=== PATIENT | male | born 1965 | race Two or more races ===

== ENCOUNTER → 2017-10-29 | Outpatient (REF) | payer OTHER | LOC: M SFHCLERA 11:23 | PROVIDERS: ATTEND Nurse Practitioner Family | DX: J02.9 Acute pharyngitis, unspecified (principal) ==

== ENCOUNTER 2020-02-09 10:31 | Emergency (ER) | payer OTHER ==
[~2020-02-09] VITALS: Ht 180.3 cm; Wt 101.7 kg
[2020-02-09] MEDS ORDERED: CETI10CH PO (10:44)
[2020-02-09] MEDS ORDERED: PRED20TA (10:44)
[2020-02-09] MEDS ORDERED: ATOR40TA75 PO (10:44)
[2020-02-09] MEDS ORDERED: SULF1TAB93 PO (10:44)
[2020-02-09] MEDS ORDERED: FLON1SPR NARES (10:44)
[2020-02-09] MEDS ORDERED: OXYB15TA14 PO (10:44)
[2020-02-09] MEDS ORDERED: MELO15TA28 PO (10:44)
[2020-02-09 12:11] LABS: BASO # 0.1 10^3/uL (0.0-0.2); BASO % 1.1 % (0.0-1.0); EOS # 0.1 10^3/uL (0.0-0.5); HEMATOCRIT 42.5 % (42.0-52.0); HEMOGLOBIN 14.4 g/dl (13.5-17.5); LYMPH # 1.9 10^3/uL (1.5-5.0); LYMPH % 26.5 % (24.0-44.0); MEAN CORPUSCULAR HEMOGLOBIN 29.9 pg (27.0-33.0); MEAN CORPUSCULAR HGB CONC 33.9 g/dl (32.0-36.5); MEAN CORPUSCULAR VOLUME 88.4 fl (80.0-96.0); MONO # 0.5 10^3/uL (0.0-0.8); MONO % 7.1 % (0.0-5.0); NEUTROPHILS # 4.2 10^3/uL (1.5-8.5); NEUTROPHILS % 59.6 % (36.0-66.0); PLATELET COUNT, AUTOMATED 258 10^3/uL (150-450); RED BLOOD COUNT 4.81 10^6/uL (4.30-6.10); WHITE BLOOD COUNT 7.1 10^3/uL (4.0-10.0)
[2020-02-09 12:30] LABS: BLOOD UREA NITROGEN 18 MG/DL (7-18); CARBON DIOXIDE LEVEL 29 MEQ/L (21-32); CHLORIDE LEVEL 103 MEQ/L (98-107); CREATININE FOR GFR 1.02 MG/DL (0.70-1.30); ERYTHROCYTE SEDIMENTATION RATE 22 mm/hr (0-20); GLOMERULAR FILTRATION RATE > 60.0 (>56); GLUCOSE, FASTING 93 MG/DL (70-100); POTASSIUM SERUM 4.3 MEQ/L (3.5-5.1); SODIUM LEVEL 136 MEQ/L (136-145)
[2020-02-09 12:42] LABS: C REACTIVE PROTEIN QUANTITATIV 0.61 MG/DL (0.00-0.30)
--- NOTE | 2020-02-09 13:34 | REP ---
LEFT ELBOW, FOUR VIEWS: Four views of the elbow performed. No acute fracture or dislocation is seen. There is mild spurring of the proximal ulna. There is mild soft tissue swelling over the olecranon, possibly indicating bursitis at that location. Electronically Signed by Uriel Park MD 02/09/2020 02:27 P
--- NOTE | 2020-02-09 14:36 | CR.PDOC ---
General Date of Consultation: Feb 09, 2020 Referring Provider: FRANCISCO J VAUGHN MD Consultation REASON FOR CONSULTATION/CHIEF COMPLAINT: [Medical assessment for admission]. HISTORY OF PRESENT ILLNESS: [55 years old white female with past medical history of prostate cancer had fallen on his left elbow about 2 weeks ago sustained a laceration but he did not go on one week later he went to urgent care center where he received 1 g of Rocephin, steroids and Bactrim by mouth for one week for redness and swelling. Patient came in with the complaint of swelling at his left elbow and will await called in by the ED team to assess for possible admission.]. ALLERGIES: Please see below. HOME MEDICATIONS: Please see below. PAST MEDICAL HISTORY: , Prostate cancer, hyperlipidemia, erectile dysfunction PAST SURGICAL HISTORY: None. Prostatectomy artificial urethral sphincter FAMILY HISTORY: History of diabetes or cancer SOCIAL HISTORY: Lives with the family. No history of smoking, alcohol or drug abuse REVIEW OF SYSTEMS: Musculoskeletal: Swelling at left elbow All other 11 systems are essentially within normal limits PHYSICAL EXAMINATION: VITAL SIGNS: Please see below. GENERAL APPEARANCE: [Normal]. HEENT: [PERRLA, extra ocular muscles intact]. RESPIRATORY: [Clear to A&P]. CARDIOVASCULAR: [S1, S2, regular]. ABDOMEN: [, Soft, nontender. Bowel sounds present]. EXTREMITIES: [Smaller swelling fluctuation just above the left, all occurring in no evidence of redness, increased local temperature, alcohol or change]. NEUROLOGICAL: [. No focal motor sensory deficit]. PSYCHIATRIC: [Normal]. LABORATORY DATA: X-ray left elbow: Bursitis, mild soft tissue swelling or old. Cranial WBC count of 7.1, hemoglobin 14.4, hematocrit 42.5, platelets 258. Electrolytes are within normal range. CRP is 0.61 ASSESSMENT/PLAN: #1. Synovial fluid collection left elbow, most likely secondary to bursitis secondary to recent untreated trauma , clinically there is no evidence of any infection or septic joint. Dr. Quesada was called in case discussed with him. He will see patient today, but patient most likely can be discharged home and follow with Dr. Quesada as an outpatient for drainage of fluid. Patient also advised to continue all his home medications at home and follow with orthopedic in one week as outpatient Vital Signs/I&O Vital Signs Date Time Temp Pulse Resp B/P (MAP) Pulse Ox O2 Delivery O2 Flow Rate FiO2 4/4/20 10:53 02/09/20 10:32 96.1 73 17 96 Room Air Laboratory Data Labs 24H Laboratory Tests 2 02/09/20 11:57: Immature Granulocyte % (Auto) 3.7H, Neutrophils (%) (Auto) 59.6, Lymphocytes (%) (Auto) 26.5, Monocytes (%) (Auto) 7.1H, Eosinophils (%) (Auto) 2.0, Basophils (%) (Auto) 1.1H, Neutrophils # (Auto) 4.2, Lymphocytes # (Auto) 1.9, Monocytes # (Auto) 0.5, Eosinophils # (Auto) 0.1, Basophils # (Auto) 0.1, Nucleated Red Blood Cells % (auto) 0.0, Erythrocyte Sedimentation Rate 22H, Anion Gap 4L, Glomerular Filtration Rate > 60.0, Calcium Level 9.0, C-Reactive Protein, Edmond titative 0.61H CBC/BMP Laboratory Tests 02/09/20 11:57 Microbiology Microbiology 02/09/20 Gram Stain, Received Pending 02/09/20 Wound Culture, Received Pending 02/09/20 Blood Culture, Received Pending Allergies Coded Allergies: No Known Allergies (Verified Allergy, Unknown, 02/09/20) Home Medications Scheduled Atorvastatin Calcium (Atorvastatin Calcium) 40 Mg Tablet, 40 MG PO QHS, (Reported) Cetirizine HCl (ZyrTEC) 10 Mg Capsule, 10 MG PO DAILY, (Reported) Meloxicam (Meloxicam) 15 Mg Tablet, 15 MG PO DAILY, (Reported) Oxybutynin Chloride (Oxybutynin Chloride ER) 15 Mg Tab.er.24, 15 MG PO DAILY, (Reported) Sulfamethoxazole/Trimethoprim (Sulfamethoxazole-Tmp Ds Tablet) 1 Each Tablet, 1 TAB PO Q12H, (Reported) LAST TAB THE NIGHT OF 02/09/2020 Scheduled PRN Fluticasone Propionate (Flonase Allergy Relief) 9.9 Ml [place].susp, 2 SPRAY NARES DAILY PRN for CONGESTION, (Reported) FELIX JADE MD Feb 09, 2020 14:36
[2020-02-09] MEDS ORDERED: CETI10CA2 PO (14:43)
[2020-02-09] MEDS ORDERED: DALBAVANCIN 1,500 MG in D5W 250 ML IV ONE (16:30)
[2020-02-09 17:19] VITALS: BP 138/93
--- NOTE | 2020-02-11 14:00 | ER ---
DATE OF CONSULTATION: 02/09/2020 CHIEF COMPLAINT: Right elbow pain and swelling. HISTORY OF PRESENT ILLNESS: The patient states that he has a 2-3 week history of right elbow pain and swelling. He said he had a slip and fall and landed right on his elbow. He had a small laceration as a result. Subsequently, he has had some swelling continuously on the right elbow. He denies any significant drainage, but the swelling has been soft and fluctuant. He has full range of motion. He denies any fevers, chills, nausea or vomiting. After the swelling did not resolve after a week, he went to an urgent care where they placed him on an oral antibiotic. This did not help. He has been wearing a sleeve and using an Chai, but since it has continued to persist and felt warm to touch, he presented to the emergency room (ER) for further evaluation and management. He has taken over the counter pain medications for pain control. Health survey reviewed. Complete 10 system review is notable for pertinent positives and negatives in the history of present illness (HPI), all other systems negative. PAST MEDICAL HISTORY: The patient denies. PAST SURGICAL HISTORY: The patient denies. ALLERGIES: No known drug allergies. MEDICATIONS: The patient is not currently on any medications. PHYSICAL EXAMINATION: The patient is awake, alert and oriented, well dressed, appropriate affect. HEENT: Normocephalic, atraumatic. Right upper extremity with full range of motion of the elbow. The skin is intact. Palpable radial pulse 2+. Regular rate. There is a small chronic appearing laceration about 0.5 cm on the dorsal aspect of the elbow. There is significant swelling about 3 cm x 3 cm over the olecranon. It appears to be mildly boggy. Unable to express any drainage. There is no surrounding erythema. It is mildly warm to touch. Positive anterior interosseous nerve/posterior interosseous nerve (AIN/PIN) and ulnar motor functions. Sensation intact to light touch super sensory branch of radial nerve, median nerve, ulnar nerve. IMAGING: Reviewed of the elbow x-ray demonstrating no acute fracture or dislocation. I discussed with the patient at this point in time, I do not believe that the olecranon bursitis that he is having is septic. I believe the either the antibiotic he took previously has improved it or it was never septic to begin with. Hence, the redness is likely due to the cut. With that being said, I encouraged conservative management in the form of compression, ice and decreased use and that often it takes 4-6 weeks for these to resolve. The patient was extremely concerned about infection and due to the fact that he had been on some oral antibiotic and hadn't resolved, we did discuss IV antibiotics, so we gave him a dose of Dalvance to help give him some coverage. I will continue to see him as an outpatient as need be. The patient expressed understanding and agreement with that plan. This was discussed with the ER staff and medical service as well.
== END 2020-02-09 17:24 | disposition home or self-care (01) ==
LOC: M ED 10:31
DX: M70.22 Olecranon bursitis, left elbow (principal); S50.02XA Contusion of left elbow, initial encounter; S50.312A Abrasion of left elbow, initial encounter; W01.0XXA Fall on same level from slipping, tripping and stumbling without subsequent striking against object, initial encounter; Y92.018 Other place in single-family (private) house as the place of occurrence of the external cause; Z79.899 Other long term (current) drug therapy
CPT/HCPCS: 73080; 80048; 85025; 85652; 86140; 87040; 87070; 87205; 96365; 99284; J0875

== ENCOUNTER 2021-05-06 08:04 | Emergency (ER) | payer OTHER ==
[~2021-05-06] VITALS: Ht 180.3 cm; Wt 95.5 kg
[~2021-05-06 08:04] MED LIST: ATOR40TA75 PO; BACTDSTA PO; CETI10CA2 PO; CETI10CH PO; FLON1SPR NARES; MELO15TA28 PO; OXYB15TA14 PO; PRED20TA
[2021-05-06] MEDS ORDERED: D 1010002 PO (08:27)
[2021-05-06] MEDS ORDERED: MELA5CAP2 PO (08:27)
[2021-05-06] MEDS ORDERED: METHOCARBAMOL 1,000 MG/10 ML VIAL (J2800) IV ONE (10:30)
[2021-05-06 10:49] LABS: BASO # 0.1 10^3/uL (0.0-0.2); EOS # 0.1 10^3/uL (0.0-0.5); EOS % 2.2 % (0.0-3.0); HEMATOCRIT 42.4 % (42.0-52.0); HEMOGLOBIN 14.5 g/dl (13.5-17.5); LYMPH # 1.3 10^3/uL (1.5-5.0); MEAN CORPUSCULAR HEMOGLOBIN 30.7 pg (27.0-33.0); MEAN CORPUSCULAR HGB CONC 34.2 g/dl (32.0-36.5); MEAN CORPUSCULAR VOLUME 89.8 fl (80.0-96.0); MONO # 0.4 10^3/uL (0.0-0.8); MONO % 7.4 % (2.0-8.0); NEUTROPHILS # 3.1 10^3/uL (1.5-8.5); PLATELET COUNT, AUTOMATED 232 10^3/uL (150-450); RED BLOOD COUNT 4.72 10^6/uL (4.30-6.10); WHITE BLOOD COUNT 4.9 10^3/uL (4.0-10.0)
[2021-05-06 11:19] LABS: BLOOD UREA NITROGEN 13 MG/DL (7-18); CARBON DIOXIDE LEVEL 29 MEQ/L (21-32); CHLORIDE LEVEL 107 MEQ/L (98-107); CREATININE FOR GFR 0.73 MG/DL (0.70-1.30); GLOMERULAR FILTRATION RATE > 60.0 (>56); GLUCOSE, FASTING 91 MG/DL (70-100); POTASSIUM SERUM 4.5 MEQ/L (3.5-5.1); SODIUM LEVEL 139 MEQ/L (136-145)
[2021-05-06 11:20] LABS: CALCIUM LEVEL 9.4 MG/DL (8.5-10.1)
--- NOTE | 2021-05-06 11:38 | REPVR ---
PROCEDURE INFORMATION: Exam: CT Thoracic Spine Without Contrast Exam date and time: 05/06/2021 10:54 AM Age: 56 years old Clinical indication: Pain in thoracic spine; Additional info: Severe pain radiating down R leg TECHNIQUE: Imaging protocol: Computed tomography images of the thoracic spine without contrast. Radiation optimization: All CT scans at this facility use at least one of these dose optimization techniques: automated exposure control; mA and/or kV adjustment per patient size (includes targeted exams where dose is matched to clinical indication); or iterative reconstruction. COMPARISON: No relevant prior studies available. FINDINGS: Vertebrae: There is no acute fracture. No subluxation. There are multiple Schmorl's nodes. Multilevel degenerative disc disease in the thoracic spine as well as the lower cervical spine. T1-T2: No significant disc protrusion. No severe spinal canal stenosis. No significant neural foraminal narrowing. T2-T3: No significant disc protrusion. No severe spinal canal stenosis. No significant neural foraminal narrowing. T3-T4: No significant disc protrusion. No severe spinal canal stenosis. No significant neural foraminal narrowing. T4-T5: No significant disc protrusion. No severe spinal canal stenosis. No significant neural foraminal narrowing. T5-T6: No significant disc protrusion. No severe spinal canal stenosis. No significant neural foraminal narrowing. T6-T7: No significant disc protrusion. No severe spinal canal stenosis. No significant neural foraminal narrowing. T7-T8: No significant disc protrusion. No severe spinal canal stenosis. No significant neural foraminal narrowing. T8-T9: No significant disc protrusion. No severe spinal canal stenosis. No significant neural foraminal narrowing. T9-T10: No significant disc protrusion. No severe spinal canal stenosis. No significant neural foraminal narrowing. T10-T11: No significant disc protrusion. No severe spinal canal stenosis. No significant neural foraminal narrowing. T11-T12: No significant disc protrusion. No severe spinal canal stenosis. No significant neural foraminal narrowing. T12-L1: No significant disc protrusion. No severe spinal canal stenosis. No significant neural foraminal narrowing. Additional findings: Gallstone within the gallbladder. Nodular atelectasis or scar in the left lower lobe. Posterior dependent atelectasis in both lower lobes. IMPRESSION: 1. No acute fracture. 2. Cholelithiasis. Electronically signed by: Mary Romero On 05/06/2021 11:38:12 AM
--- NOTE | 2021-05-06 11:45 | REPVR ---
PROCEDURE INFORMATION: Exam: CT Lumbar Spine Without Contrast Exam date and time: 05/06/2021 10:54 AM Age: 56 years old Clinical indication: Pain; Lumbago with sciatica; Right; Additional info: Severe pain radiating down R leg TECHNIQUE: Imaging protocol: Computed tomography images of the lumbar spine without contrast. Radiation optimization: All CT scans at this facility use at least one of these dose optimization techniques: automated exposure control; mA and/or kV adjustment per patient size (includes targeted exams where dose is matched to clinical indication); or iterative reconstruction. COMPARISON: No relevant prior studies available. FINDINGS: Vertebrae: No acute fracture. No dislocation or subluxation. There is multilevel degenerative disc and facet disease. L1-L2: No significant disc protrusion. No severe spinal canal stenosis. No significant neural foraminal narrowing. L2-L3: No significant disc protrusion. No severe spinal canal stenosis. No significant neural foraminal narrowing. L3-L4: No significant disc protrusion. No severe spinal canal stenosis. No significant neural foraminal narrowing. L4-L5: Mild central canal stenosis due to degenerative facet disease and posterior disc bulge. No significant neural foraminal narrowing. L5-S1: No significant disc protrusion. No severe spinal canal stenosis. No significant neural foraminal narrowing. Soft tissues: Small amount of atherosclerotic calcification in the abdominal aorta. IMPRESSION: 1. No acute fracture. 2. Multilevel degenerative disc and facet disease, resulting in central canal narrowing at L4-L5. Electronically signed by: Mary Romero On 05/06/2021 11:45:11 AM
[2021-05-06 11:47] LABS: ERYTHROCYTE SEDIMENTATION RATE 11 mm/hr (0-20)
[2021-05-06] MEDS ORDERED: ONDANSETRON 4MG/2ML VIAL IV ONE (12:05)
[2021-05-06] MEDS ORDERED: MORPHINE 4 MG/ML 1ML VIAL/SYRINGE (J2270) IV ONE (12:05)
[2021-05-06 12:55] VITALS: BP 151/87
[2021-05-06] MEDS ORDERED: HYDR-3713 PO (13:17)
[2021-05-06] MEDS ORDERED: PRED20TA PO (13:17)
[2021-05-06] MEDS ORDERED: METH-1165 PO (13:17)
== END 2021-05-06 13:27 | disposition home or self-care (01) ==
LOC: M ED 08:04
DX: M51.37 Other intervertebral disc degeneration, lumbosacral region (principal); M48.07 Spinal stenosis, lumbosacral region; Z85.46 Personal history of malignant neoplasm of prostate; Z79.899 Other long term (current) drug therapy
CPT/HCPCS: 36415; 72128; 72131; 80048; 85025; 85652; 86140; 96374; 96375; 99284; J2270; J2405; J2800

== ENCOUNTER 2021-05-12 10:09 | Emergency (ER) | payer OTHER ==
[~2021-05-12] VITALS: Ht 180.3 cm; Wt 95.5 kg
[~2021-05-12 10:09] MED LIST changes: +D 1010002 PO; +HYDR-3713 PO; +MELA5CAP2 PO; +METH-1165 PO; +PRED20TA PO
[2021-05-12] MEDS ORDERED: diazePAM 10MG/2ML SYRINGE (J3360 PER 5MG) IV ONE ×2 (15:20→17:20)
--- NOTE | 2021-05-12 18:50 | REPVR ---
PROCEDURE INFORMATION: Exam: MR Lumbar Spine Without Contrast Exam date and time: 05/12/2021 6:14 PM Age: 56 years old Clinical indication: Low back pain TECHNIQUE: Imaging protocol: Multiplanar magnetic resonance images of the lumbar spine without intravenous contrast. COMPARISON: CT Spine, lumbar w/o contrast 05/06/2021 10:52 AM FINDINGS: Straightening of the lumbar lordosis. Vertebral body heights are maintained. Mild multilevel Modic type 1 edematous degenerative endplate change. No cord compression. No abnormal cord signal. Conus medullaris terminates at the L1 level. Paravertebral soft tissues are unremarkable. L1-L2: Left paracentral disc protrusion superimposed over broad-based disc bulge causes mild canal narrowing and mild left foraminal narrowing. L2-L3: Broad-based disc bulge and facet hypertrophy cause mild canal narrowing and mild bilateral foraminal narrowing. L3-L4: Facet hypertrophy causes mild bilateral foraminal narrowing. No significant canal narrowing. L4-L5: Right paracentral disc extrusion superimposed over broad-based disc bulge causing effacement of the right lateral recess and compression of the traversing right L5 nerve root. Moderate left and mild right foraminal narrowing. L5-S1: No significant canal or foraminal narrowing. IMPRESSION: 1. Right paracentral disc extrusion at L4-L5 compressing the traversing right L5 nerve root. Recommend surgical consultation. 2. Other chronic findings, as above. Electronically signed by: Ignacio Mayen On 05/12/2021 18:50:09 PM
[2021-05-12] MEDS ORDERED: PERC5TAB12 PO (19:24)
[2021-05-12] MEDS ORDERED: VALI5TAB PO (19:24)
[2021-05-12] MEDS ORDERED: PERCOCET 5MG/325MG TAB PO ONE (19:25)
[2021-05-12 19:34] VITALS: BP 141/85
--- NOTE | 2021-05-13 08:45 | ED PDOC ---
Post-Departure Follow-Up mri ls spine faxed formal report to madeleine yang for fu Michael Nuñez MD May 13, 2021 08:45
== END 2021-05-12 20:04 | disposition home or self-care (01) ==
LOC: M ED 10:09
DX: M51.26 Other intervertebral disc displacement, lumbar region (principal); Z79.52 Long term (current) use of systemic steroids; Z79.899 Other long term (current) drug therapy; Z85.46 Personal history of malignant neoplasm of prostate
CPT/HCPCS: 72148; 96375; 96376; 99284; J3360

== ENCOUNTER → 2021-06-02 | Outpatient (CLI) | payer OTHER ==
[~2021-06-02] MED LIST changes: +PERC5TAB12 PO; +VALI5TAB PO
--- NOTE | 2021-06-04 00:03 | ECWPNPC ---
PATIENT NAME: JOSE DIAZ : 1965 GENDER: MALE VISIT DATE: 06/02/2021 DISCHARGE DATE: 06/02/21 0903 VISIT LOCKED DATE TIME: PHYSICIAN: SVETLANA PINTO RESOURCE: SVETLANA PINTO REASON FOR APPOINTMENT 1. DORSALGIA HISTORY OF PRESENT ILLNESS GENERAL: HPI 56-YEAR-OLD MALE IN FOR INITIAL PAIN CONSULT REGARDING LOW BACK PAIN WITH RADICULAR SYMPTOMS DOWN THE RIGHT LEG. PATIENT STATES HIS PAIN HAS BEEN PRESENT FOR SEVERAL YEARS HOWEVER IN APRIL HIS PAIN INCREASED. HE RATES HIS PAIN CURRENTLY AT A 4 OUT OF 10 AND DESCRIBES IT ACHING, CONTINUOUS, SHARP, AND STABBING. PATIENT ADMITS TO UPCOMING SURGERY ON JUNE 19 TO HOPEFULLY HELP ELIMINATE HIS PAIN SYMPTOMS.. - -. FALL RISK SCREENING: SCREENING : NO FALLS REPORTED IN THE LAST YEAR. PAIN SCREENING: PATIENT HAS A COMPLAINT OF ACUTE OR CHRONIC PAIN :YES LOCATION OF PAIN:LOW BACK INTENSITY OF PAIN (SCALE OF 1 TO 10):4 VARIES IN INTENSITY. PAIN LEVEL GETS HIGH A 9 OR 10. WHAT DOES YOUR PAIN FEEL LIKE:ACHING, CONTINOUS, SHARP, STABBING DURATION:CONTINOUS, CONSTANT, AWAKENS FROM SLEEP PAIN IS INCREASED BY:ACTIVITIES, PROLONGED STANDING PAIN IS DECREASED BY:USE OF PAIN MEDICATIONS, SITTING HEAT, MASSAGE, BIOWAVE NURSING NOTE: - -. PAIN CENTER INTAKE QUESTIONS: DO YOU HAVE A HISTORY OF MRSA? :NO DO YOU TAKE A BLOOD THINNERS? :NO DO YOU HAVE ANY BLEEDING DISORDERS? :NO ANY NEW NUMBNESS OR WEAKNESS IN YOUR LEGS OR ARMS? :NO ANY PACEMAKER,DEFIBRILLATOR, OR DORSAL COLUMN STIMULATOR? :NO DO YOU HAVE ANY RASHES OR OPEN SORES? :NO ARE YOU ALLERGIC TO IV DYE? :NO ARE YOU DIABETIC? :NO ANY NEW PROBLEMS WITH YOUR MEDICATIONS? :NO HAVE YOU RECEIVED A VACCINE IN THE PAST 30 DAYS? :NO DO YOU PLAN TO RECEIVE A VACCINE IN THE NEXT 21 DAYS? :NO DO YOU NEED ANY PRESCRIPTION? :NO DO YOU TAKE ANY IMMUNOSUPPRESSIVE MEDICATIONS? :NO DO YOU HAVE ANY KIDNEY OR LIVER DISEASE? :NO IS THERE A CHANCE YOU COULD BE ? :NO ARE YOU BREAST FEEDING? :NO CURRENT MEDICATIONS TAKING FLUTICASONE PROPIONATE (INHAL) 50 MCG/BLIST AEROSOL POWDER BREATH ACTIVATED 2 SPRAYS NASALLY DAILY TAKING MELOXICAM 15 MG TABLET 1 TABLET ORALLY ONCE A DAY TAKING OXYBUTYNIN CHLORIDE ER 15 MG TABLET EXTENDED RELEASE 24 HOUR 1 TABLET ORALLY ONCE A DAY TAKING TIZANIDINE HCL 4 MG TABLET 1 TABLET NEEDED ORALLY THREE TIMES A DAY TAKING ATORVASTATIN CALCIUM 40 MG TABLET 1/2 TABLET ORALLY ONCE A DAY TAKING CETIRIZINE HCL 10 MG TABLET 1 TABLET ORALLY ONCE A DAY TAKING IBUPROFEN 800 MG TABLET 1 TABLET WITH FOOD OR MILK NEEDED ORALLY THREE TIMES A DAY TAKING ACETAMINOPHEN 325 MG CAPSULE 1 CAPSULE NEEDED ORALLY EVERY 6 HRS TAKING MELATONIN 1 MG CAPSULE 1 CAPSULE AT BEDTIME NEEDED ORALLY ONCE A DAY TAKING GABAPENTIN 300 MG CAPSULE 1 CAPSULE ORALLY TWICE DAILY TAKING OXYCODONE-ACETAMINOPHEN 5-325 MG TABLET 1 TABLET NEEDED ORALLY EVERY 6 HRS TAKING DIAZEPAM 5 MG TABLET 1 TABLET NEEDED ORALLY ONCE A DAY NOT-TAKING CHOLECALCIFEROL 25 MCG (1000 UT) CAPSULE 1 CAPSULE ORALLY ONCE A DAY UNKNOWN VESICARE 5 MG TABLET 1 TABLET ORALLY ONCE A DAY UNKNOWN LIPITOR 20 MG TABLET 1 TABLET ORALLY ONCE A DAY UNKNOWN CIALIS 20 MG TABLET 1 TABLET ORALLY MEDICATION LIST REVIEWED AND RECONCILED WITH THE PATIENT PAST MEDICAL HISTORY OBSTRUCTIVE SLEEP APNEA-CPAP 08/07/2019 OSTEOARTHRITIS 04/04/2018 IMPOTENCE 03/01/2018 PAIN OF LEFT SHOULDER JOINT 12/13/2017 PAIN OF RIGHT SHOULDER JOINT 11/01/2017 DAYTIME SOMNOLENCE 11/01/2017 URINARY INCONTINENCE 11/01/2017 DYSPNEA ON EXERTION 11/01/2017 HISTORY OF RADICAL PROSTATECTOMY 11/01/2017 PERSONAL HISTORY OF OTHER MENTAL DISORDERS 05/16/2014 CARCINOMA OF PROSTATE 08/07/2019 HYPERLIPIDEMIA 04/04/2018 ALLERGIES N.K.D.A. SURGICAL HISTORY MULTIPLE PROCEDURES RE: PROSTATE [place] [id number] LASER EYE 2000 FAMILY HISTORY FATHER: MOTHER: SIBLINGS: ALIVE SON(S): ALIVE DAUGHTER(S): ALIVE 1 BROTHER(S) - HEALTHY. 1 SON(S) , 1 DAUGHTER(S) - HEALTHY. SOCIAL HISTORY GENERAL: TOBACCO USE ARE YOU A:NONSMOKER LATEX QUESTIONNAIRE LATEX ALLERGY : HAVE YOU EVER DEVELOPED ANY TYPE OF REACTION AFTER HANDLING LATEX PRODUCTS SUCH RUBBER GLOVES, CONDOMS, DIAPHRAGMS, BALLOONS, SOCKS, OR UNDERWEAR?NO LATEX ALLERGY : HAVE YOU EVER DEVELOPED ANY TYPE OF REACTION DURING OR AFTER DENTAL APPOINTMENT, VAGINAL/RECTAL EXAMINATION, SURGICAL PROCEDURE, OR ANY OTHER EXPOSURE?NO LATEX RISK : HAVE YOU EVER HAD ANY DIFFICULTY BREATHING OR HIVES AFTER EATING OR HANDLING ANY FRUITS, OR VEGETABLES; SUCH KIWI, BANANAS, STONE FRUITS, OR CHESTNUTSNO LATEX RISK : DO YOU HAVE A PREVIOUS PERSONAL HISTORY OF MORE THAN NINE SURGERIES, SPINA BIFIDA, OR REPEATED CATHERIZATIONS? NO LATEX RISK : ARE YOU FREQUENTLY EXPOSED TO LATEX PRODUCTS IN YOUR OCCUPATION?NO DATE ASKED : 06/02/2021 ALCOHOL USE: OCCASIONAL. 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 CHILLS NO . WEIGHT CHANGE OF UNKNOWN REASONS NO . MUSCULOSKELETAL: ANY UNUSUAL JOINT PAIN OR SWELLING NOT MENTIONED NO . SYSTEMIC LUPUS NO . ANY NEUROMUSCULAR DISORDER NOT MENTIONED NO . LYME DISEASE NO . GASTROENTEROLOGY: ANY NEW CHANGE IN BOWEL CONTROL? NO . HISTORY OF LIVER DISORDER NOT MENTIONED NO . HISTORY OF UNUSUAL ABDOMINAL PAIN OR CRAMPING NOT MENTIONED NO . NO CONSTIPATION. GENITOURINARY: ANY NEW CHANGE IN BLADDER CONTROL? NO . ANY RENAL/KIDNEY CONDITON NOT MENTIONED NO . NEUROLOGY: HISTORY OF TBI NOT MENTIONED NO . OTHER NEW NUMBNESS OR PAIN PATTERNS NOT MENTIONED NO . NEW ONSET DIZZINESS OR NEUROLOGICAL CHANGES NOT MENTIONED NO . HISTORY OF SEVERE HEADACHES NOT MENTIONED NO . HISTORY OF STROKE OR NEUROLOGICAL DISORDER NOT MENTIONED NO . CARDIOLOGY: HEART SURGERY NO . CONGESTIVE HEART FAILURE/FLUID OVERLOAD NOT MENTIONED NO . HISTORY OF CHEST PAIN,IRREGULAR HEART BEAT NOT MENTIONED NO . RESPIRATORY: SHORTNESS OF BREATH ON EXERTION, WHEEZES, UNUSUAL COUGH NOT MENTIONED NO . ENDOCRINOLOGY: ADRENAL GLAND OR THYROID DISORDERS NOT MENTIONED NO . UNUSUAL URINATION, DIZZINESS OR LETHARGY NOT MENTIONED NO . VITAL SIGNS WT 210.2 LBS, HT 71 IN, BMI 29.31 INDEX, BP 145/89 MM HG, HR 71 /MIN, RR 18 /MIN, TEMP 97.9 F, OXYGEN SAT % 97%, SAFE IN ENV? (Y/N) YES, REVIEWED BY: WARREN BLEVINS MA. EXAMINATION GENERAL EXAMINATION: GENERALNO ACUTE DISTRESS, WELL NOURISHED AND HYDRATED. PSYCHAPPROPRIATE MOOD AND AFFECT . LUNGS:CLEAR TO AUSCULTATION BILATERALLY, NO WHEEZES, RHONCHI, RALES. HEART:NO MURMURS, REGULAR RATE AND RHYTHM. BACK:DENIES POINT TENDERNESS ALONG LUMBAR SPINE, POSITIVE MODIFIED SLR RIGHT SIDE. MUSCULOSKELETAL:NOTABLE WEAKNESS OF THE RIGHT LOWER EXTREMITY, LEFT LOWER EXTREMITY WITHIN NORMAL LIMITS. ASSESSMENTS INTERVERTEBRAL DISC DISORDER WITH RADICULOPATHY OF LUMBAR REGION - M51.16 (PRIMARY) TREATMENT INTERVERTEBRAL DISC DISORDER WITH RADICULOPATHY OF LUMBAR REGION NOTES: 56-YEAR-OLD MALE IN FOR INITIAL PAIN CONSULT. GIVEN PRESENTING SYMPTOMS AND THE FACT THAT PATIENT WILL HAVE SURGERY ON 19 JUNE PROCEDURES WILL NOT BE RECOMMENDED AT THIS TIME. WILL FOLLOW-UP IN 2 MONTHS. PATIENT HAS EXPRESSED UNDERSTANDING OF AND WAS IN AGREEMENT WITH TREATMENT PLAN. GIVEN TIME ASKED QUESTIONS AND EXPRESS CONCERNS. PROCEDURE CODES FA211 ESTABILISHED PATIENT [facility] CHARGE DISPOSITION & COMMUNICATION FOLLOW UP 2 MONTHS (REASON: BACK PAIN) ELECTRONICALLY SIGNED BY MARLA BARNETT ON 06/03/2021 AT 08:17 AM EDT DISCLAIMER : THIS IS A VISIT SUMMARY EXTRACTED FROM THE [employer] CHART. IT IS NOT A COPY OF THE [employer] PROGRESS NOTE. [place]
== END ==
LOC: M PAIN 08:30
PROVIDERS: ATTEND Family Medicine
DX: M51.16 Intervertebral disc disorders with radiculopathy, lumbar region (principal); G47.33 Obstructive sleep apnea (adult) (pediatric); R32 Unspecified urinary incontinence; E78.5 Hyperlipidemia, unspecified; Z85.46 Personal history of malignant neoplasm of prostate; N52.9 Male erectile dysfunction, unspecified; M25.511 Pain in right shoulder; M25.512 Pain in left shoulder; R06.09 Other forms of dyspnea; Z79.1 Long term (current) use of non-steroidal anti-inflammatories (NSAID); Z79.891 Long term (current) use of opiate analgesic; Z79.899 Other long term (current) drug therapy

== ENCOUNTER → 2021-06-15 | Outpatient (CLI) | payer OTHER | LOC: M LABSMTC 09:23 | PROVIDERS: ATTEND Orthopaedic Surgery | DX: Z01.812 Encounter for preprocedural laboratory examination (principal); Z11.52 Encounter for screening for COVID-19 ==

== ENCOUNTER → 2021-12-21 | Outpatient (CLI) | payer OTHER ==
[~2021-12-21] MED LIST changes: +PROHANCE 279.3MG/ML 15ML VIAL As Ordered ONE; +PROHANCE 279.3MG/ML 5ML VIAL As Ordered ONE
== END ==
LOC: M RAD 14:35
PROVIDERS: ATTEND Orthopaedic Surgery
DX: M51.26 Other intervertebral disc displacement, lumbar region (principal); M48.061 Spinal stenosis, lumbar region without neurogenic claudication; M47.816 Spondylosis without myelopathy or radiculopathy, lumbar region
CPT/HCPCS: 72158; A9576